=== PATIENT | female | born 1955 | race American Indian/Alaskan Native ===

== ENCOUNTER 2021-12-30 17:58 | Emergency (ER) | payer MEDICAID ==
[2021-12-30 19:02] LABS: Basophils # (Auto) 0.1 K/mm3 (0.0-0.1); Basophils % (Auto) 0.5 % (0.0-1.8); Eosinophils % (Auto) 0.1 % (0.0-4.3); Hematocrit 39.3 % (30.3-42.9); Hemoglobin 12.7 gm/dl (10.1-14.3); Lymphocytes # (Auto) 1.2 K/mm3 (1.2-5.4); Lymphocytes % (Auto) 11.1 % (13.4-35.0); Mean Corpuscular HGB Conc 32 % (30-34); Mean Corpuscular Volume 94 fl (79-97); Monocytes # (Auto) 0.7 K/mm3 (0.0-0.8); Monocytes % (Auto) 6.1 % (0.0-7.3); Platelet Count 236 K/mm3 (140-440); Red Blood Count 4.17 M/mm3 (3.65-5.03); Red Cell Distribution Width 14.8 % (13.2-15.2)
[2021-12-30 19:20] LABS: Blood Urea Nitrogen 15 mg/dL (7-17); Calcium 8.6 mg/dL (8.4-10.2); Hemolysis Index 13
[2021-12-30 19:30] LABS: BUN/Creatinine Ratio 25
--- NOTE | 2021-12-30 21:14 | Cat Scan Report ---
CT head/brain wo con INDICATION / CLINICAL INFORMATION: 66 years Female; Medical Clearance Psych. TECHNIQUE: Routine CT head without contrast. All CT scans at this location are performed using CT dos e reduction for ALARA by means of automated exposure control. COMPARISON: None. FINDINGS: BRAIN / INTRACRANIAL CONTENTS: There appear to be mild periventricular white matter changes most cons istent with mild age-appropriate microvascular angiopathy. Is also mild cerebral atrophy. The ventric ular system is correspondingly appropriate in size and configuration. There is no clear CT evidence o f acute intracranial hemorrhage or significant mass effect. ORBITS: No significant abnormality of visualized orbits. SINUSES / MASTOIDS: There is mild mucosal thickening within the ethmoid air cells and along the infer ior maxillary sinuses. CRANIOCERVICAL JUNCTION: No significant abnormality. ADDITIONAL FINDINGS: None. IMPRESSION: 1. There is no clear CT evidence of acute intracranial process. Signer Name: Dimitrios Corrales MD Signed: 12/30/2021 9:10 PM Workstation Name: [id number]
[2021-12-30] MEDS ORDERED: POTASSIUM CHLORIDE ER 20 MEQ TAB PO ONE (22:13)
--- NOTE | 2021-12-30 22:13 | Emergency Department Report ---
HPI - General Chief Complaint: Altered Mental Status Time Seen by Provider: 12/30/21 18:12 - HPI HPI: 66-year-old female with unknown past medical history brought in by EMS after she was found outside with altered mental status. Patient was alert and oriented to self but confused with GCS of 14. She became combative with EMS and was given 5 mg of Haldol, 5 mg of Versed, and 50 mg of diphenhydramine IM. Apparently the patient was discharged from [facility] on December 22, before which she was here at our [facility] psych unit. The patient was somnolent and medically sedated when I evaluated her in the beginning but when I returned after several hours, the patient is awake and alert. She continues to talk about the FBI following her and being her protector. She denies any complaints. It is very difficult to understand her. Further details of the HPI are limited due to the patient's current clinical condition. ED Past Medical Hx - Past Medical History Previous Medical History?: No Hx Psychiatric Treatment: Yes (recently transferred for [facility] psych to [facility] ED Review of Systems ROS: Stated complaint: ams Other details as noted in HPI Comment: Unobtainable due to pts medical conditions Physical Exam - Physical Exam Vital Signs: Vital Signs 12/30/21 12/30/21 12/30/21 18:03 18:20 18:30 Temperature 98.1 F Pulse Rate 102 H Respiratory 16 Rate Blood Pressure 109/65 Blood Pressure 117/79 [Left] O2 Sat by Pulse 98 98 Oximetry 12/30/21 12/30/21 12/30/21 18:34 18:35 20:13 Temperature 98.6 F 98.1 F Pulse Rate 93 H 87 Respiratory 17 16 Rate Blood Pressure Blood Pressure 109/65 111/80 [Left] O2 Sat by Pulse 97 97 99 Oximetry Physical Exam: GENERAL: Well developed and well nourished. Disheveled. No acute distress. HEAD: Normocephalic. No obvious signs of trauma. ENT: Moist mucous membranes. EYES: Extraocular movements are intact. Pupils are equal round and reactive to light bilaterally NECK: Supple. Full ROM is intact. Trachea is midline. LUNGS: Nonlabored breathing. Equal chest rise bilaterally. Clear to auscultation bilaterally. CARDIOVASCULAR: Regular rate and rhythm. No murmurs or rubs. VASCULAR: Cap refill < 2 seconds ABDOMEN: Abdomen is soft and nondistended. There is no significant tenderness, guarding or rebound. SKIN: Skin is warm and dry NEURO: Patient is awake, alert. Very difficult to understand but is generally confused. finance attorney II-XII grossly intact. No focal deficits. Normal motor and sensory exam throughout. Normal speech. MUSCULOSKELETAL: No obvious deformities. No significant tenderness. Normal ROM throughout. BACK/SPINE: No midline tenderness or step-offs of the C/T/L spine. No costovertebral angle tenderness. ED Course Vital Signs 12/30/21 12/30/21 12/30/21 18:03 18:20 18:30 Temperature 98.1 F Pulse Rate 102 H Respiratory 16 Rate Blood Pressure 109/65 Blood Pressure 117/79 [Left] O2 Sat by Pulse 98 98 Oximetry 12/30/21 12/30/21 12/30/21 18:34 18:35 20:13 Temperature 98.6 F 98.1 F Pulse Rate 93 H 87 Respiratory 17 16 Rate Blood Pressure Blood Pressure 109/65 111/80 [Left] O2 Sat by Pulse 97 97 99 Oximetry ED Medical Decision Making - Lab Data Result diagrams: 12/30/21 18:48 12/30/21 18:48 - Radiology Data Radiology results: report reviewed - Medical Decision Making 66-year-old female history of schizophrenia brought in by EMS after found wandering out on the streets and given cocktail of Haldol/Versed/Benadryl when the patient became combative. She was afebrile and with normal vital signs other than mild tachycardia. Fingerstick blood glucose was 88. On my assessment, the patient is difficult to understand and is speaking about the FBI following her and being her protector. She seems generally confused but has no focal neurologic deficits on exam. Denies any complaints. Given the patient's age and altered mental state we will perform CT of the head as well as full set of medical clearance labs given that the patient is talking about being followed by the FBI which may be representation of psychiatric illness with acute psychosis. CT of the head reveals no acute abnormalities. Chest x-ray shows findings consistent with emphysema but no acute abnormalities. Labs revealed very mild leukocytosis of 11.2 with no significant anemia. Kidney function is normal. Potassium is low at 3.4 which we will replete. Patient is noted to have elevated TSH of 19.7. Unclear whether patient has known diagnosis of hypothyroidism or not. T3/T4 levels have been sent. Given negative medical work-up, I will have the patient evaluated by the mental health/psychiatry team to determine further disposition. She has no SI or HI. Nonetheless, she does have symptoms of acute psychosis. Urinalysis still pending. Urinalysis is negative. The patient was seen by the mental health/psychiatry team who recommended discharge with outpatient resources. Critical care attestation.: If time is entered above; I have spent that time in minutes in the direct care of this critically ill patient, excluding procedure time. ED Disposition Clinical Impression: TSH elevation, Psychosis, Altered mental state, Hypokalemia Disposition: 01 HOME / SELF CARE / HOMELESS Is pt being admited?: No Condition: Stable Instructions: Hypothyroidism, Psychosis Additional Instructions: Professional and Agency Contacts To help [facility](07/06) [place] Crisis Line: Suicide Prevention Line: Crisis Text Line: Text START to 829078 Emergency: 911 Outpatient [facility] Behavioral Health Resources: [place]: [facility] [address] [place], [place] [address] [facility] [address] [place] [address] [facility] - [address] [place] [address] Wednesday thru Wednesday - 8am - 5pm [facility] Address: [address] [place] [address] [place]: [facility] Address: [address] [place] [address] Wednesday thru Wednesday- 7am-2pm [facility] Address: [address] [place] [address] Wednesday thru Wednesday: 8:30AM-5PM OUTPATIENT MENTAL HEALTH RESOURCES [facility], [address] [place] [address] [facility] MD: [address] [place] [address] [facility]: [address] [place] [address] [place] [address] [phone] [facility]: [address] [facility] [address] [place] [address] [facility]: [address] [facility] [address] [facility] [id number] [facility]: [address] [place] [address] Chadwick Arrington MD: [address] [facility] [id number] [facility]: [address] [place], [place] [id number] [phone] [place] CRISIS AND ACCESS LINE: * Referrals: PRIMARY CAREMD [Primary Care Provider] - 3-5 Days
--- NOTE | 2021-12-30 22:58 | XRay Report ---
CHEST 1 VIEW INDICATION / CLINICAL INFORMATION: AMS...cough. COMPARISON: None available. FINDINGS: SUPPORT DEVICES: None. HEART / MEDIASTINUM: No significant abnormality. LUNGS / PLEURA: Emphysematous changes are suggested. No superimposed acute pathology. No pneumothorax . ADDITIONAL FINDINGS: No significant additional findings. IMPRESSION: 1. Emphysematous appearing chest without evidence of superimposed acute pathology. Signer Name: Víctor Sterling II, MD Signed: 12/30/2021 10:54 PM Workstation Name: [id number]
[2021-12-31 01:43] LABS: Bilirubin,Urine NEG (Negative); Blood,Urine SM (Negative); Color,Urine Yellow (Yellow); Protein,Urine <15 mg/dL mg/dL (Negative); Urobilinogen,Urine < 2.0 mg/dL (<2.0)
[2021-12-31 01:55] LABS: Benzodiazepines Screen,Urine PRESUMPTIVE POSITIVE
[2021-12-31 02:25] LABS: Amphetamine Screen,Urine PRESUMPTIVE NEGATIVE
[2021-12-31 02:26] LABS: Cannabinoid Screen,Urine PRESUMPTIVE NEGATIVE; Cocaine Screen,Urine PRESUMPTIVE NEGATIVE; Methadone Screen,Urine PRESUMPTIVE NEGATIVE; Opiate Screen,Urine PRESUMPTIVE NEGATIVE
[2021-12-31] MEDS ORDERED: POTASSIUM CHLORIDE ER 20 MEQ TAB PO SCH (08:00)
[2021-12-31] MEDS ORDERED: ZIPRASIDONE MESYLATE 20 MG VIAL IM ONE ×2 (11:16→11:17)
--- NOTE | 2021-12-31 11:18 | Event Note ---
Date: 12/31/21 Patient was admitted last night for mental health evaluation. Patient found to have an altered mental status. Patient was recently discharged from [place]. Patient is combative and aggressive and try to smoke in the ER. Vital signs stable. Labs reviewed and is unremarkable except for slight leukocytosis however urine and UDS is still pending. Psychiatric evaluation is not done yet because patient is combative. Patient given Geodon 20 mg IM for chemical restraint.
--- NOTE | 2021-12-31 12:38 | Progress Note ---
Subjective - Reason for Consult Consult date: 12/31/21 Reason for consult: agitatioin - Chief Complaint Chief complaint: This patient is a 66y/o female patient who was just released from the [facility] floor after being treated about 8 days. She was [facility] to a jail, as the patient is homeless. The patient is disheveled. She at times speaks nonsensically, but she is able to answer questions. This appears to be her baseline. During my evaluation of the patient, she is sitting on side of the bed. She is asking to smoke. I ask the patient what brought her back to the hospital. She says she was walking down the street and a man "asked me to give him head." She says "next thing I know, I'm here." The patient says "when I was at [place] they were supposed to had found me an apartment." The patient denies SI/HI. She also denies hallucinations, although, I did observe her laughing out loud to herself. REVIEW OF SYSTEMS Constitutional: Negative for weight loss ENT: Negative for stridor Respiratory: Negative for cough or hemoptysis All other systems reviewed and are negative MENTAL STATUS EXAMINATION General Appearance and Behavior: Age appropriate, good hygiene, wearing appropriate clothes. anxious, cooperative Cooperation: Cooperative Psychomotor Behavior: Psychomotor normal Mood: anxious Affect and affective range: congruent with stated mood Thought Process: confused Thought Content: Obsessions Speech: Normal tone and pace Suicidal Ideation: Denies Homicidal Ideation: Denies Hallucinations: Denies Delusions: None Impulse Control: Limited Insight and Judgment: Limited insight and poor judgment Memory: Limited Attention: distracted Orientation: a/o Assessment (1) Schizophrenia Current Visit: Yes Status: Acute Treatment Plan Continue previously prescribed meds Medical: per primary Sitter: defer to primary Disposition: Do not recommend acute psychiatric inpatient treatment. This patient was just treated on an inpatient basis and discharged yesterday from [facility]. Will sign off. Thanks Case staffed with Dr. Ferro Mental Status Exam - Vital signs Last Vital Signs Temp 98.0 F 12/31/21 07:29 Pulse 97 H 12/31/21 07:29 Resp 22 12/31/21 07:29 BP 117/78 12/31/21 07:29 Pulse Ox 95 12/31/21 07:29
--- NOTE | 2021-12-31 14:31 | Event Note ---
Date: 12/31/21 Patient has been evaluated by our psychiatric team and recommended patient to be discharged home and follow-up as an outpatient. Patient is currently denying any suicidal or homicidal ideation. No visual or auditory hallucination. Patient is medically and psychiatrically stable for discharge.
[2021-12-31 14:33] VITALS: BP 115/84
== END 2021-12-31 14:51 | disposition home or self-care (01) ==
LOC: ED 17:58
DX: R41.82 Altered mental status, unspecified (principal); R94.6 Abnormal results of thyroid function studies; F23 Brief psychotic disorder; E87.6 Hypokalemia; Z20.822 Contact with and (suspected) exposure to COVID-19
CPT/HCPCS: 36415; 70450; 71045; 80048; 80307; 81001; 84439; 84443; 84481; 85025; 96372; 99285; J3486; U0003; 80320; G0480